=== PATIENT | male | born 1945 | race Caucasian/White ===

== ENCOUNTER 2024-10-18 13:08 | Emergency (ER) | payer MEDICARE, BC ==
[~2024-10-18] VITALS: Ht 165.1 cm; Wt 62.7 kg
[2024-10-18] MEDS: ACETAMINOPHEN 325 MG TAB PO ONE (15:27)
[2024-10-18] MEDS: OSELTAMIVIR PHOSPHATE 75 MG CAP (TAMIFLU) PO ONE (15:27)
[2024-10-18] MEDS ORDERED: OSEL75CA PO (15:29)
[2024-10-18] MEDS ORDERED: ALBU8.5H INH (15:30)
[2024-10-18] MEDS: ALBUTEROL 90 MCG/ACT 8GM HFA INHALER INH ONE (15:39)
[2024-10-18 15:47] VITALS: BP 154/71; TEMP 99.7; O2SAT 97
== END 2024-10-18 15:49 | disposition home or self-care (01) ==
LOC: M ED 13:08
DX: J09.X2 Influenza due to identified novel influenza A virus with other respiratory manifestations (principal); Z79.51 Long term (current) use of inhaled steroids